=== PATIENT | male | born 1950 | race Asian ===

== ENCOUNTER 2019-01-16 08:46 | Inpatient (IN) | payer OTHER ==
[2019-01-16 10:18] VITALS: BMI 16.0
--- NOTE | 2019-01-16 11:44 | HP ---
CIWA Score Nausea/Vomitin Muscle Tremors: 7-Severe,w/o Arm Extended Anxiety: 3 Agitation: 0-Normal Activity Paroxysmal Sweats: 3 Orientation: 0-Oriented Tacttile Disturbances: 0-None Auditory Disturbances: 0-None Visual Disturbances: 0-None Headache: 0-None Present CIWA-Ar Total Score: 15 - Admission Criteria OASAS Guidelines: Admission for Medically Managed Detox: Requires at least one of the followin. CIWA greater than 12 2. Seizures within the past 24 hours 3. Delirium tremens within the past 24 hours 4. Hallucinations within the past 24 hours 5. Acute intervention needed for co occurring medical disorder 6. Acute intervention needed for co occurring psychiatric disorder 7. Severe withdrawal that cannot be handled at a lower level of care (continued vomiting, continued diarrhea, abnormal vital signs) requiring intravenous medication and/or fluids 8. Admission ROS [facility] - HPI Allergies/Adverse Reactions: Allergies Allergy/AdvReac Type Severity Reaction Status Date / Time No Known Allergies Allergy Verified 01/16/19 10:07 History of Present Illness: pt here requesting detox from etoh use , reports 8-10 cans of beer /day since age 20 , reports current symptoms as above , reports prior detox @ [facility] 1 yr ago , tried outpt after and relapsed , latest use last night , current CASTILLO 0.018 pmhx : htn PSHx : denies tobacco : 1 ppd Exam Limitations: Clinical Condition - Ebola screening Have you traveled outside of the country in the last 21 days: No (N) Have you had contact with anyone from an Ebola affected area: No Do you have a fever: No - Review of Systems Constitutional: See HPI, Loss of Appetite EENT: reports: Other (glasses) Respiratory: reports: No Symptoms reported Cardiac: reports: No Symptoms Reported GI: reports: Diarrhea, Nausea, Poor Appetite : reports: No Symptoms Reported Musculoskeletal: reports: No Symptoms Reported Integumentary: reports: Bruising (left FA " it keeps on coming and going ") Neuro: reports: Headache Endocrine: reports: No Symptoms Reported Psychiatric: reports: Orientated x3, Agitated, Anxious Patient History - Smoking Cessation Smoking history: Current every day smoker Have you smoked in the past 12 months: Yes Hx Chewing Tobacco Use: No Initiated information on smoking cessation: No - Substances abused Alcohol Substance route: Oral Frequency: Daily Amount used: 8-05/10oz cans of beer Age of first use: 20 Date of last use: 01/15/19 Family Disease History - Family Disease History Family History: Denies Admission Physical Exam [facility] - Vital Signs Vital Signs: Vital Signs - 24 hr 01/16/19 01/16/19 10:00 11:11 Temperature 97.8 F 97.8 F Pulse Rate 71 71 Respiratory 17 17 Rate Blood Pressure 155/65 155/65 - Physical General Appearance: Yes: Mild Distress, Alcohol on Breath, Anxious HEENTM: Yes: EOMI, Normocephalic, Normal Voice Respiratory: Yes: Chest Non-Tender, Lungs Clear, Normal Breath Sounds Cardiology: Yes: Regular Rhythm, Regular Rate, S1, S2 Abdominal: Yes: Non Tender, Soft Back: Yes: Normal Inspection Musculoskeletal: Yes: Gait Steady Extremities: Yes: Normal Inspection, Normal Range of Motion, Tremors Neurological: Yes: Fully Oriented, Alert, Motor Strength 5/5 Integumentary: Yes: Warm - Diagnostic (1) Alcohol abuse Current Visit: Yes Status: Acute (2) Nicotine dependence Current Visit: Yes Status: Chronic Qualifiers: Nicotine product type: cigarettes Breathalyzer - Breathalyzer Breathalyzer: 0.018 Urine Drug Screen - Test Device Lot number: [id number] Expiration date: 09/26/20 - Control Is test valid?: Yes - Results Drug screen NEGATIVE: Yes Inpatient Rehab Admission - Rehab Decision to Admit Inpatient rehab admission?: No
[2019-01-16] MEDS ORDERED: NICOTINE POLACRILEX 2 MG GUM BUC PRN (11:52)
[2019-01-16] MEDS ORDERED: BISMUTH SUBSALICYLATE 524 MG/30 ML UD PO PRN (11:52)
[2019-01-16] MEDS ORDERED: ACETAMINOPHEN 325 MG TABLET (FP) PO PRN ×2 (11:52)
[2019-01-16] MEDS ORDERED: IBUPROFEN 400 MG TABLET (FP) PO PRN (11:52)
[2019-01-16] MEDS ORDERED: hydrOXYzine PAMOATE 25 MG CAPSULE (FP) PO PRN (11:52)
[2019-01-16] MEDS ORDERED: MELATONIN 5 MG TABLETS PO PRN (11:52)
[2019-01-16] MEDS ORDERED: MENTHOL/PHENOL 1 EACH UD MM PRN (11:52)
[2019-01-16] MEDS ORDERED: MAGNESIUM HYDROX 2400MG/30ML ORAL SUSPENSION 30 ML CUP PO PRN (11:52)
[2019-01-16] MEDS ORDERED: MAGNESIUM CITRATE 300 ML BOTTLE PO PRN (11:52)
[2019-01-16] MEDS ORDERED: chlordiazePOXIDE HCL 25 MG CAPSULE PO PRN (11:54)
[2019-01-16] MEDS ORDERED: chlordiazePOXIDE HCL 25 MG CAPSULE PO ONE (13:00)
[2019-01-16] MEDS: chlordiazePOXIDE HCL 25 MG CAPSULE PO SCH ×2 (17:54→22:06)
[2019-01-16] MEDS: THIAMINE HCL 100 MG TABLET (FP) PO SCH (22:06)
[2019-01-16] MEDS: traZODone HCL 50 MG TABLET (FP) PO SCH (22:10)
[2019-01-17] MEDS: chlordiazePOXIDE HCL 25 MG CAPSULE PO SCH ×4 (07:25→22:10)
[2019-01-17] MEDS: PRENATAL VITAMINS W/ FOLIC ACID TABLET (FP) PO SCH (10:36)
[2019-01-17] MEDS: PANTOPRAZOLE 20 MG TABLET (FP) PO SCH (10:36)
[2019-01-17] MEDS: ATENOLOL 25 MG TABLET (FP) PO SCH (10:36)
--- NOTE | 2019-01-17 10:50 | PN ---
S CIWA - CIWA Score Nausea/Vomitin Muscle Tremors: 2 Anxiety: 2 Agitation: 2 Paroxysmal Sweats: 1-Minimal Palms Moist Orientation: 0-Oriented Tacttile Disturbances: 1-Very Mild Itch/Numbness Auditory Disturbances: 0-None Visual Disturbances: 0-None Headache: 2-Mild CIWA-Ar Total Score: 12 [facility] Progress Note (SOAP) Subjective: alert,irritable,anxious,interrupted sleep,tremor Objective: 01/17/19 11:05 Vital Signs Temperature 97.2 F L 01/17/19 10:05 Pulse Rate 80 01/17/19 10:05 Respiratory Rate 18 01/17/19 10:05 Blood Pressure 132/59 L 01/17/19 10:05 O2 Sat by Pulse Oximetry (%) labs pending Assessment: 01/17/19 11:06 withdrawal symptom Plan: continue detox
[2019-01-17] MEDS: MAG HYDROX/AL HYDROX/SIMETH 30 ML UNIT-DOSE CUP PO PRN (11:41)
[2019-01-17] MEDS: amLODIPine BESYLATE 5 MG TABLET (FP) PO SCH (11:44)
[2019-01-17 11:47] LABS: HEMATOCRIT 37.6 % (35.4-49); HEMOGLOBIN 12.8 GM/dL (11.7-16.9); MCH 31.8 pg (25.7-33.7); MCHC 34.2 g/dl (32.0-35.9); MEAN CELL VOLUME 93.1 fl (80-96); MEAN PLT VOLUME 9.1 fl (7.5-11.1); PLATELET COUNT 266 K/MM3 (134-434); RBC 4.03 M/mm3 (4.00-5.60); RDW 15.2 % (11.9-15.9)
[2019-01-17 11:59] LABS: ALBUMIN 3.3 g/dl (3.4-5.0); BILIRUBIN,TOTAL 0.6 mg/dL (0.2-1); BLOOD UREA NITROGEN 10.1 mg/dL (7-18); CREATININE 0.8 mg/dL (0.55-1.3); POTASSIUM 3.5 mmol/L (3.5-5.1); TOT PROT 6.4 g/dl (6.4-8.2)
[2019-01-17] MEDS: THIAMINE HCL 100 MG TABLET (FP) PO SCH (22:10)
[2019-01-17] MEDS: traZODone HCL 50 MG TABLET (FP) PO SCH (22:12)
[2019-01-18] MEDS: chlordiazePOXIDE HCL 25 MG CAPSULE PO SCH ×2 (06:01→10:01)
[2019-01-18] MEDS: PRENATAL VITAMINS W/ FOLIC ACID TABLET (FP) PO SCH (10:01)
[2019-01-18] MEDS: RANITIDINE HCL 150 MG TABLET (FP) PO SCH (10:01)
[2019-01-18] MEDS: PANTOPRAZOLE 20 MG TABLET (FP) PO SCH (10:01)
[2019-01-18] MEDS: ATENOLOL 25 MG TABLET (FP) PO SCH (10:01)
[2019-01-18] MEDS: amLODIPine BESYLATE 5 MG TABLET (FP) PO SCH (10:01)
--- NOTE | 2019-01-18 11:10 | PN ---
[facility] CIWA - CIWA Score Nausea/Vomitin-No Nausea/No Vomiting Muscle Tremors: 3 Anxiety: 3 Agitation: 1-Slight > Activity Paroxysmal Sweats: No Perspiration Orientation: 0-Oriented Tacttile Disturbances: 2-Mild Itch/Numbness/Burn Auditory Disturbances: 0-None Visual Disturbances: 0-None Headache: 0-None Present CIWA-Ar Total Score: 9 [facility] Progress Note (SOAP) Subjective: PATIENT C/O SHAKES, ANXIETY, MILD NUMBNESS AND TINGLING TO HANDS/FEET Objective: 01/18/19 11:08 Vital Signs Temperature 98.1 F 01/18/19 09:40 Pulse Rate 78 01/18/19 09:40 Respiratory Rate 14 01/18/19 09:40 Blood Pressure 143/70 01/18/19 09:40 O2 Sat by Pulse Oximetry (%) Laboratory Tests 01/17/19 01/17/19 01/17/19 07:00 07:00 07:00 WBC 4.0 RBC 4.03 Hgb 12.8 Hct 37.6 MCV 93.1 MCH 31.8 MCHC 34.2 RDW 15.2 Plt Count 266 MPV 9.1 Sodium 133 L Potassium 3.5 Chloride 96 L Carbon Dioxide 32 Anion Gap 6 L BUN 10.1 Creatinine 0.8 Est GFR (CKD-EPI)AfAm 105.64 Est GFR (CKD-EPI)NonAf 91.15 Random Glucose 121 H Calcium 9.0 Total Bilirubin 0.6 AST 35 ALT 42 Alkaline Phosphatase 63 Total Protein 6.4 Albumin 3.3 L RPR Titer Nonreactive PE: ALERT AND ORIENTED X 3 SKIN WARM AND DRY +PERRLA, EOMS INTACT BL EXT +TREMORS, NO VISIBLE EDEMA AMB AD MISSY Assessment: 01/18/19 11:09 WITHDRAWAL SX Plan: CONTINUE DETOX ORAL FLUIDS ENCOURAGED MONITOR CLINICALLY
[2019-01-18] MEDS: MAG HYDROX/AL HYDROX/SIMETH 30 ML UNIT-DOSE CUP PO PRN (16:57)
[2019-01-18] MEDS ORDERED: chlordiazePOXIDE HCL 10 MG CAPSULE PO PRN (17:00)
[2019-01-18] MEDS: chlordiazePOXIDE HCL 10 MG CAPSULE PO SCH ×2 (17:10→22:06)
[2019-01-18] MEDS: traZODone HCL 50 MG TABLET (FP) PO SCH (22:06)
[2019-01-18] MEDS: THIAMINE HCL 100 MG TABLET (FP) PO SCH (22:06)
[2019-01-19] MEDS: chlordiazePOXIDE HCL 10 MG CAPSULE PO SCH ×3 (06:24→17:12)
[2019-01-19] MEDS: amLODIPine BESYLATE 5 MG TABLET (FP) PO SCH (10:14)
[2019-01-19] MEDS: RANITIDINE HCL 150 MG TABLET (FP) PO SCH (10:14)
[2019-01-19] MEDS: PANTOPRAZOLE 20 MG TABLET (FP) PO SCH (10:14)
[2019-01-19] MEDS: PRENATAL VITAMINS W/ FOLIC ACID TABLET (FP) PO SCH (10:14)
[2019-01-19] MEDS: ATENOLOL 25 MG TABLET (FP) PO SCH (10:15)
[2019-01-19] MEDS: MAG HYDROX/AL HYDROX/SIMETH 30 ML UNIT-DOSE CUP PO PRN ×2 (10:17→19:59)
--- NOTE | 2019-01-19 13:09 | PN ---
[facility] CIWA - CIWA Score Nausea/Vomitin-No Nausea/No Vomiting Muscle Tremors: 2 Anxiety: 2 Agitation: 2 Paroxysmal Sweats: 2 Orientation: 0-Oriented Tacttile Disturbances: 0-None Auditory Disturbances: 0-None Visual Disturbances: 0-None Headache: 0-None Present CIWA-Ar Total Score: 8 [facility] Progress Note (SOAP) Subjective: Tremor, sweating, interrupted sleep. Patient stated that he has been drinking beers x 40 years and that 4-5 days in detox is not enough for him. Patient is requesting inpatient rehab. Patient is anxious. Patient c/o left ear pain 4-5/ 10 since yesterday, pain intensity is the same as yesterday. Otoscope lighting has been dim, need to send patient to [facility] for ear examination if pain still persist. Instructed to take motrin or tylenol prn. Objective: 01/19/19 13:09 Last Vital Signs Temp Pulse Resp BP Pulse Ox 97.3 F L 72 16 129/72 01/19/19 09:41 01/19/19 09:41 01/19/19 09:41 01/19/19 09:41 Laboratory Tests 01/17/19 01/17/19 01/17/19 07:00 07:00 07:00 WBC 4.0 RBC 4.03 Hgb 12.8 Hct 37.6 MCV 93.1 MCH 31.8 MCHC 34.2 RDW 15.2 Plt Count 266 MPV 9.1 Sodium 133 L Potassium 3.5 Chloride 96 L Carbon Dioxide 32 Anion Gap 6 L BUN 10.1 Creatinine 0.8 Est GFR (CKD-EPI)AfAm 105.64 Est GFR (CKD-EPI)NonAf 91.15 Random Glucose 121 H Calcium 9.0 Total Bilirubin 0.6 AST 35 ALT 42 Alkaline Phosphatase 63 Total Protein 6.4 Albumin 3.3 L RPR Titer Nonreactive Labs reviewed Assessment: 01/19/19 13:10 Withdrawal symptoms Patient c/o left ear pain Plan: Continue detox Encouraged PO water hydration Patient is a good candidate for inpatient rehab, minimum of 28 days. Left ear pain: tylenol/motrin prn, need to have staff accompany patient to [facility] for ear evaluation if pain still persist tomorrow as otoscope lighting has been very dim.
[2019-01-19] MEDS: THIAMINE HCL 100 MG TABLET (FP) PO SCH (22:18)
[2019-01-19] MEDS: traZODone HCL 50 MG TABLET (FP) PO SCH (22:18)
[2019-01-20] MEDS: chlordiazePOXIDE HCL 10 MG CAPSULE PO SCH (06:37)
--- NOTE | 2019-01-20 09:32 | PN ---
[facility] Progress Note Note: both ears assessed with equipment provided on unit by RN; wax noted no s/s of infection. pt denies of any pain. will order debrox. pt may continue with this medication at home and or rehab.
--- NOTE | 2019-01-20 09:36 | DS ---
[facility] Detox Discharge Summary Admission Date: 01/16/19 Discharge Date: 01/20/19 - History Present History: Alcohol Dependence - Physical Exam Results Vital Signs: Vital Signs Temperature 97.9 F 01/20/19 09:10 Pulse Rate 66 01/20/19 09:10 Respiratory Rate 18 01/20/19 09:10 Blood Pressure 140/64 01/20/19 09:10 O2 Sat by Pulse Oximetry (%) - Treatment Hospital Course: Detox Protocol Followed, Detoxed Safely, Responded well, Discharged Condition Good, Rehab Referral Accepted - Medication Discharge Medications: Ambulatory Orders Amlodipine Besylate [Norvasc -] 5 mg PO DAILY 01/16/19 Atenolol [Tenormin -] 25 mg PO DAILY 01/16/19 Omeprazole 20 mg PO DAILY 01/16/19 Ranitidine [Zantac -] 150 mg PO DAILY 01/16/19 traZODone HCL [Desyrel -] 25 mg PO HS 01/16/19 - Diagnosis (1) Alcohol abuse Current Visit: Yes Status: Chronic (2) Nicotine dependence Current Visit: Yes Status: Chronic Qualifiers: Nicotine product type: cigarettes Substance use status: uncomplicated Qualified Code(s): F17.210 - Nicotine dependence, cigarettes, uncomplicated - AMA Did Patient Leave Against Medical Advice: No (pt referred to inpatient rehab)
[2019-01-20] MEDS ORDERED: CARBAMIDE PEROXIDE 6.5% OTIC 15 ML BOTTLE AU SCH (10:00)
[2019-01-20] MEDS: RANITIDINE HCL 150 MG TABLET (FP) PO SCH (10:50)
[2019-01-20] MEDS: amLODIPine BESYLATE 5 MG TABLET (FP) PO SCH (10:50)
[2019-01-20] MEDS: ATENOLOL 25 MG TABLET (FP) PO SCH (10:50)
[2019-01-20] MEDS: PRENATAL VITAMINS W/ FOLIC ACID TABLET (FP) PO SCH (10:50)
[2019-01-20] MEDS: PANTOPRAZOLE 20 MG TABLET (FP) PO SCH (10:50)
[2019-01-20] MEDS: MAG HYDROX/AL HYDROX/SIMETH 30 ML UNIT-DOSE CUP PO PRN (11:05)
[2019-01-20 13:53] VITALS: BP 150/74; PULSE 72; TEMP 96.3
== END 2019-01-20 14:45 | disposition other institution (70) | DRG 897 ==
LOC: YASAS 08:46 → EDBD 08:46 → Y6N 12:22
PROVIDERS: ADMIT Surgery; ATTEND Surgery
PROC: HZ2ZZZZ Detoxification Services for Substance Abuse Treatment (ICD-10-PCS; principal; 2019-01-16)
DX: F10.230 Alcohol dependence with withdrawal, uncomplicated (principal); F17.210 Nicotine dependence, cigarettes, uncomplicated; H92.02 Otalgia, left ear
CPT/HCPCS: 36415; 80053; 85027; 86593

== ENCOUNTER 2019-01-20 15:01 | Inpatient (IN) | payer OTHER | END 2019-01-23 10:45 | disposition home or self-care (01) | LOC: YASAS 15:01 → Y5N 15:02 ==